=== PATIENT | female | born 1965 | race Caucasian/White ===

== ENCOUNTER 2019-01-16 05:34 | Day surgery (SDC) | payer MEDICARE, MEDICAID ==
[2019-01-11 10:33] LABS: BASOPHILS # (AUTO) 0.1 X10'3 (0-0.2); BASOPHILS % (AUTO) 0.7 % (0-1); EOSINOPHILS # (AUTO) 0.1 X10'3 (0-0.9); EOSINOPHILS % (AUTO) 0.8 % (0-6); LYMPHOCYTES # (AUTO) 2.5 X10'3 (1.1-4.8); LYMPHOCYTES % (AUTO) 21.9 % (21-51); MEAN CORPUSCULAR HEMOGLOBIN 30.3 PG (27.0-31.0); MEAN CORPUSCULAR HGB CONC 34.4 g/dL (33.0-36.5); MEAN PLATELET VOLUME 8.8 FL (7.4-10.4); MONOCYTES # (AUTO) 0.8 X10'3 (0-0.9); MONOCYTES % (AUTO) 6.9 % (2-12); NEUTROPHILS # (AUTO) 7.9 X10'3 (1.8-7.7); NEUTROPHILS % (AUTO) 69.7 % (42-75); PRE OP HEMATOCRIT 42.8 % (35.0-45.0); PRE OP HEMOGLOBIN 14.7 g/dL (12.0-16.0); PRE OP PLATELET COUNT 226 X10'3 (140-440); RED BLOOD COUNT 4.86 X10'6 (4.20-5.60)
[2019-01-11 10:45] LABS: CLARITY,URINE CLEAR (Clear); COLOR,URINE YELLOW (Yellow); GLUCOSE, URINE NEGATIVE (Neg); KETONES,URINE NEGATIVE (Neg); LEUKOCYTE ESTERASE ,URINE NEGATIVE (Neg); NITRITES, URINE NEGATIVE (Neg); OCCULT BLOOD,URINE NEGATIVE (Neg); PROTEIN,URINE NEGATIVE (Neg); UROBILINOGEN,URINE 0.2 E.U/dL (0.2-1.0)
[2019-01-11 10:46] LABS: UA COLLECTION TYPE CLN CATCH MIDSTREAM
[2019-01-11 10:56] LABS: ALBUMIN 3.3 G/DL (3.4-5.0); ALBUMIN/GLOBULIN RATIO 0.9 (1.1-1.5); ALKALINE PHOSPHATASE 84 IU/L (46-116); BLOOD UREA NITROGEN 20 MG/DL (7-18); BUN/CREATININE RATIO 22.5 (6.6-38.0); CALCIUM 9.1 MG/DL (8.5-10.1); CHLORIDE 105 MMOL/L (99-107); CREATININE 0.89 MG/DL (0.40-0.90); PRE OP ALT 23 U/L (30-65); PRE OP ANION GAP 10 (8-16); PRE OP AST 11 U/L (10-37); PRE OP BILIRUB, TOTAL 0.3 MG/DL (0.0-1.0); PRE OP GLUCOSE 135 MG/DL (70-104); PRE OP POTASSIUM 4.2 MMOL/L (3.4-5.1); PRE OP SODIUM 141 MMOL/L (135-145); TOTAL PROTEIN 6.9 G/DL (6.4-8.2); eGFR 66 ML/MIN
[~2019-01-16] VITALS: Ht 160 cm; Wt 130.2 kg
[2019-01-16] VITALS (17 sets, daily range): BP systolic 116–154; BP diastolic 46–98
[~2019-01-16 05:34] MED LIST: ALBU2.5V12 NEB; CLON-528 PO; LISI-644 PO; MONT10TA21 PO; POTA20TA19 PO; SPIIN INH
[2019-01-16] MEDS ORDERED: ATOR40TA PO (05:58)
[2019-01-16] MEDS ORDERED: ALBU8.5H8 INH (05:58)
[2019-01-16] MEDS ORDERED: ACET-75 PO (05:58)
[2019-01-16] MEDS ORDERED: GABA-532 PO (05:58)
[2019-01-16] MEDS ORDERED: CHOL10002 PO (05:58)
[2019-01-16] MEDS ORDERED: IBUP-1984 PO (05:58)
[2019-01-16] MEDS ORDERED: METR-159 PO (05:58)
[2019-01-16] MEDS ORDERED: HYDR25TA4 PO (05:58)
[2019-01-16] MEDS ORDERED: ringers solution, lacted 1,000 ML IV SCH ×2 (06:44→10:59)
[2019-01-16] MEDS ORDERED: cefazolin/dext.iso 2gm/50ml 50 ML IV ONE (06:45)
[2019-01-16] MEDS ORDERED: famotidine 20mg tablet PO ONE (06:45)
[2019-01-16] MEDS: [UNRECOGNIZED DRUG - REMARK] IV NR ×2 (06:45→10:00)
[2019-01-16] MEDS: [UNRECOGNIZED DRUG - REMARK] PO NR ×2 (06:45→19:20)
[2019-01-16] MEDS ORDERED: ceFAZolin 1GM/D5W- ADD-VANTAGE 50 ML IV ONE (06:45)
[2019-01-16] MEDS ORDERED: albuterol 2.5 MG/3 ML nebule NEB ONE (06:45)
[2019-01-16] MEDS ORDERED: BUPIVAcaine/PF 2.5 mg/ml (0.25%) 30ml vial ONE (06:55)
[2019-01-16] MEDS: ceFAZolin 1000mg inj ONE ×2 (07:39→07:40)
[2019-01-16] MEDS ORDERED: midazolam 2 mg/2 ml injection ONE (09:31)
[2019-01-16] MEDS ORDERED: fentaNYL /PF 50mcg/ml 5ml ampule ONE (09:31)
[2019-01-16] MEDS ORDERED: propofol inj 20 ML IV ONE (09:33)
[2019-01-16] MEDS ORDERED: rocuronium 10mg/ml inj IV ONE (09:33)
[2019-01-16] MEDS ORDERED: LIDOcaine 2% (20mg/ml) 5ml vial ONE (09:33)
[2019-01-16] MEDS ORDERED: flumazenil 0.1 mg/ml inj. IV ONE (10:05)
[2019-01-16] MEDS ORDERED: naloxone 0.4 mg/ml inj ONE (10:05)
[2019-01-16] MEDS ORDERED: sevoflurane 250ml liquid IH ONE (10:05)
[2019-01-16] MEDS ORDERED: albuterol 60 PUFF/8GM Inhaler IH ONE (10:05)
[2019-01-16] MEDS ORDERED: meperidine/PF 25mg/ml syringe IV PRN ×3 (11:00)
[2019-01-16] MEDS ORDERED: morphine 4 MG/ML inj SYRINge IV PRN ×2 (11:00)
[2019-01-16] MEDS ORDERED: ondansetron/PF 4mg/2ml inj IV PRN ×2 (11:00→11:05)
[2019-01-16] MEDS ORDERED: proCHLORperazine 10 MG/2 ml inj IV PRN (11:00)
[2019-01-16] MEDS ORDERED: dexamethasone sod phosphate 4mg/ml inj. ONE (11:08)
[2019-01-16] MEDS ORDERED: neostigmine methylsulfate 1 MG/ML 10ml vial ONE (11:08)
[2019-01-16] MEDS ORDERED: glycopyrrolate 0.2mg/ml inj ONE (11:08)
[2019-01-16] MEDS ORDERED: ondansetron/PF 4mg/2ml inj ONE (11:08)
--- NOTE | 2019-01-16 11:37 | NUR ---
Received from OR via SURGICAL BED , accompanied by Anesthesiologist KARENA and report given by Anesthesiolgist. PATIENT WITH 20G PIVI N RIGHT UE RUNNING LR AT 100. DENIES PAIN. 2 ABDOMINAL LAP SITE BANDAIDS PRESENT AND CLEAN AND DRY. PATIENT WITH SCDS ON AND 10L MASK ON WITH 99% SATURATIONS. Addendum: 01/16/19 at 1153 by Lukas Dubon RN, RN Amended: Links added.
[2019-01-16] MEDS ORDERED: ipratropium/albuterol 3ml nebule IH ONE (11:40)
[2019-01-16] MEDS ORDERED: albuterol 2.5 MG/3 ML nebule NEB SCH (12:25)
[2019-01-16] MEDS ORDERED: non-formulary drug (Albuterol Sulfate 1 VIAL) NEB PRN (12:25)
[2019-01-16] MEDS ORDERED: clonazePAM 0.5mg tablet PO PRN (12:25)
--- NOTE | 2019-01-16 12:27 | NUR ---
Report called to receiving nurse. Transferred via [] Belongings []. Special Issues communicated to receiving nurse. ALL CRITERIA FOR TRANSFER TO THE FLOOR HAS BEEN ACHIEVED. VSS. BED LOW, CALL LIGHT AND VS. SET IN PLACE. RN PRESENT TO ACCEPT CARE. PATIENT RESTING COMFORTABLY IN BED. BELONGINGS SENT WITH PATIENT. DRESSINGS CDI. ON 4LPM NASAL CANNULA. TAKEN UP TO SURGICAL FLOOR WITH [address]. DENIES PAIN. DRESSINGS CDI. Addendum: 01/16/19 at 1236 by Lukas Dubon RN RN Amended: Links added.
--- NOTE | 2019-01-16 12:45 | NUR ---
Report received from LEXI Gaytan in recovery. Received patient to bed 340A, with all belongings on 4 L O2. Vital signs are stable. patient has no needs presently will continue to monitor.
[2019-01-16] MEDS: ibuprofen tablet 400 MG TABLET PO SCH ×2 (14:54→19:22)
[2019-01-16] MEDS ORDERED: albuterol 2.5 MG/3 ML nebule NEB PRN (15:05)
[2019-01-16] MEDS: gabapentin 300mg capsule PO SCH ×2 (16:02→23:34)
--- NOTE | 2019-01-16 18:15 | NUR ---
Patient in room [facility] 340. I have received report from LEXI Pink and had the opportunity to ask questions and assume patient care.
--- NOTE | 2019-01-16 18:24 | NUR ---
Problems reprioritized. Patient report given, questions answered & plan of care reviewed with LEXI Montelongo.
[2019-01-16] MEDS ORDERED: acetaminophen 325mg tablet PO PRN (19:20)
[2019-01-16] MEDS ORDERED: diphenhydrAMINE 25mg capsule PO PRN (19:20)
[2019-01-16] MEDS: potassium Cl 20 mEq SR tablet PO SCH (19:21)
[2019-01-16] MEDS: metroNIDAZOLE 500mg tablet PO SCH (19:21)
[2019-01-16] MEDS ORDERED: montelukast 10mg tablet PO SCH (21:00)
[2019-01-16] MEDS ORDERED: acetaminophen 325mg tablet PO SCH (21:00)
[2019-01-16] MEDS ORDERED: glucagon, human recombinant 1mg kit SUBCUT PRN (21:20)
[2019-01-16] MEDS ORDERED: dextrose ORAL solution 15 GM/59 ML bottle PO PRN ×2 (21:20)
[2019-01-16] MEDS ORDERED: MESSAGE TO PHARMACY PO ONE (21:20)
[2019-01-16] MEDS ORDERED: insulin Lispro (HumaLOG) vial - multi-dose SQ SCH (21:20)
[2019-01-16] MEDS ORDERED: dextrose 50%-water 50ml dispensing syringe IV PRN ×2 (21:20)
[2019-01-17] VITALS: BP 127/78
[2019-01-17] MEDS: ibuprofen tablet 400 MG TABLET PO SCH ×2 (02:00→08:00)
--- NOTE | 2019-01-17 06:31 | NUR ---
Problems reprioritized. Patient report given, questions answered & plan of care reviewed with LEXI Knowles.
--- NOTE | 2019-01-17 06:42 | NUR ---
Patient in room [facility] 340. I have received report from LEXI Montelongo and had the opportunity to ask questions and assume patient care.
[2019-01-17 07:24] VITALS: BP 127/74
[2019-01-17] MEDS ORDERED: ipratropium 0.5 MG/2.5ML nebule NEB SCH (08:00)
[2019-01-17] MEDS ORDERED: atorvastatin 20mg tablet PO SCH (08:00)
[2019-01-17] MEDS ORDERED: lisinopril 20mg tablet PO SCH (08:00)
[2019-01-17] MEDS ORDERED: vitamin D (cholecalciferol) 1,000 unit tablet PO SCH (08:00)
[2019-01-17] MEDS ORDERED: HYDROchlorothiazide 25mg tablet PO SCH (08:00)
[2019-01-17] MEDS: gabapentin 300mg capsule PO SCH (08:16)
[2019-01-17] MEDS: metroNIDAZOLE 500mg tablet PO SCH (08:17)
[2019-01-17] MEDS: potassium Cl 20 mEq SR tablet PO SCH (08:17)
[2019-01-17] MEDS ORDERED: montelukast 10mg tablet PO SCH (08:22)
--- NOTE | 2019-01-17 08:27 | NUR ---
Pt refused humalog insulin after breakfast. Pt states that she does not take insulin at home and does not want to take it here. Education provided regarding risks of not taking insulin, pt stated understanding and continued to refuse. Will continue to monitor.
--- NOTE | 2019-01-17 10:21 | NUR ---
Nutrition consult: Patient with hx T2DM with A1c 6.3, DM education not warranted at this time. Patient s/p lap hernia repair with mesh to abdominal wall, diet just advanced to CHO controlled, pending PO intake. Will continue to follow. Addendum: 01/17/19 at [address] Amended: Links added.
[2019-01-17 11:00] VITALS: BP 127/78
[2019-01-17] MEDS ORDERED: lactobacillus rhamnosus 10,000 MMU CELLS/CAPSULE PO SCH (20:00)
[2019-01-17] MEDS ORDERED: insulin glargine (Lantus) pen - multi-dose SQ SCH (21:00)
== END 2019-01-17 14:19 | disposition home or self-care (01) ==
LOC: PAS 05:34 → SUR 3N 11:07 → PAS 01-17 14:19
PROVIDERS: ATTEND Surgery
DX: K43.6 Other and unspecified ventral hernia with obstruction, without gangrene (principal); E11.9 Type 2 diabetes mellitus without complications; E78.5 Hyperlipidemia, unspecified; F41.9 Anxiety disorder, unspecified; G89.29 Other chronic pain; I10 Essential (primary) hypertension; J44.9 Chronic obstructive pulmonary disease, unspecified; F32.9 Major depressive disorder, single episode, unspecified; M19.90 Unspecified osteoarthritis, unspecified site; M85.80 Other specified disorders of bone density and structure, unspecified site; G43.909 Migraine, unspecified, not intractable, without status migrainosus; G47.33 Obstructive sleep apnea (adult) (pediatric); E66.01 Morbid (severe) obesity due to excess calories; Z68.43 Body mass index [BMI] 50.0-59.9, adult; Z91.09 Other allergy status, other than to drugs and biological substances; F17.210 Nicotine dependence, cigarettes, uncomplicated; Z72.89 Other problems related to lifestyle; Z98.890 Other specified postprocedural states; Z79.899 Other long term (current) drug therapy
CPT/HCPCS: 36415; 49653; 71046; 80053; 81003; 82948; 83036; 85025; 87081; 93005; 94640; 94760; C1713; C1758; C1781; J0690; J1100; J1815; J2001; J2250; J2310; J2405; J2704; J2710; J3010; J3490; J7120; Q0163; A4215; A4618; A7000; G0378

== ENCOUNTER 2019-09-13 05:29 | Day surgery (SDC) | payer MEDICARE, MEDICAID ==
[2019-09-06 12:22] LABS: BASOPHILS # (AUTO) 0.1 X10'3 (0-0.2); EOSINOPHILS # (AUTO) 0.2 X10'3 (0-0.9); MONOCYTES # (AUTO) 0.6 X10'3 (0-0.9)
[2019-09-06 12:24] LABS: EOSINOPHILS % (AUTO) 2.5 % (0-6); LYMPHOCYTES # (AUTO) 2.4 X10'3 (1.1-4.8); LYMPHOCYTES % (AUTO) 28.8 % (21-51); MEAN CORPUSCULAR HEMOGLOBIN 29.4 PG (27.0-31.0); MEAN CORPUSCULAR VOLUME 89.1 FL (78-98); MEAN PLATELET VOLUME 8.9 FL (7.4-10.4); NEUTROPHILS % (AUTO) 60.7 % (42-75); PRE OP HEMATOCRIT 45.4 % (35.0-45.0); PRE OP PLATELET COUNT 225 X10'3 (140-440); RED CELL DISTRIBUTION WIDTH 13.2 % (11.5-14.5)
[2019-09-06 12:46] LABS: ALBUMIN 3.3 G/DL (3.4-5.0); ALBUMIN/GLOBULIN RATIO 0.9 (1.1-1.5); ALKALINE PHOSPHATASE 99 IU/L (46-116); BLOOD UREA NITROGEN 15 MG/DL (7-18); BUN/CREATININE RATIO 12.7 (6.6-38.0); CALCIUM 8.9 MG/DL (8.5-10.1); CHLORIDE 103 MMOL/L (99-107); CREATININE 1.18 MG/DL (0.40-0.90); PRE OP ALT 20 U/L (30-65); PRE OP ANION GAP 9 (8-16); PRE OP AST 15 U/L (10-37); PRE OP BILIRUB, TOTAL 0.3 MG/DL (0.0-1.0); PRE OP GLUCOSE 109 MG/DL (70-104); PRE OP POTASSIUM 4.5 MMOL/L (3.4-5.1); PRE OP SODIUM 141 MMOL/L (135-145); TOTAL CARBON DIOXIDE 29.5 MMOL/L (24-32); eGFR 47 ML/MIN
[~2019-09-13] VITALS: Ht 160 cm; Wt 133.0 kg
[~2019-09-13 05:29] MED LIST changes: +ALBU8.5H8 INH; +ATOR40TA PO; +CHOL10002 PO; +HYDR25TA4 PO; +IBUP-1984 PO; +ringers solution, lacted 1,000 ML IV SCH
[2019-09-13 05:30] VITALS: BP 165/104
[2019-09-13] MEDS ORDERED: ceFAZolin/D5W- 1GM premix 50 ML IV ONE (05:30)
[2019-09-13] MEDS ORDERED: famotidine 20mg tablet PO ONE (05:30)
[2019-09-13] MEDS ORDERED: cefazolin/dext.iso 2gm/50ml 50 ML IV ONE (05:30)
[2019-09-13] MEDS ORDERED: albuterol 2.5 MG/3 ML nebule NEB ONE (05:30)
[2019-09-13] MEDS ORDERED: LIDOcaine 1% (10mg/ml) 2ml vial ONE (05:50)
[2019-09-13] MEDS ORDERED: BUPIVAcaine/PF 2.5mg/ml (0.25%) 10ml vial ONE (07:01)
[2019-09-13] MEDS ORDERED: morphine 2 MG/ML inj. syringe IV PRN (07:10)
[2019-09-13] MEDS ORDERED: morphine 4 MG/ML inj SYRINge IV PRN (07:10)
[2019-09-13] MEDS ORDERED: ondansetron/PF 4mg/2ml inj IV PRN (07:10)
[2019-09-13] MEDS ORDERED: fentaNYL/PF 50MCG/1 ML 2ML syringe IV PRN ×2 (07:10)
[2019-09-13] MEDS ORDERED: ringers solution, lacted 1,000 ML IV SCH (07:10)
[2019-09-13] MEDS ORDERED: hydrALAZINE 20mg/ml inj. IV PRN (07:10)
[2019-09-13] MEDS ORDERED: labetalol 20mg/4ml (5mg/ml) syringe IV PRN (07:10)
[2019-09-13] MEDS ORDERED: LIDOcaine 0.5% (5mg/ml) 50ml vial ONE (07:17)
[2019-09-13] MEDS ORDERED: fentaNYL/PF 50MCG/1 ML 2ML syringe ONE (07:20)
[2019-09-13] MEDS ORDERED: MIDAZolam 1mg/ml 10ml vial ONE (07:20)
[2019-09-13 08:00] VITALS: BP 133/87
--- NOTE | 2019-09-13 08:00 | NUR ---
Received from OR via BED, accompanied by Anesthesiologist DR GOODEN and report given by Anesthesiolgist. PATIENT A&OX4, DENIES PAIN, V/S WNL, NEUROVASCULAR CHECKS INTACT, 20G PIV LUE, SCD ON, DRESSING TO RIGHT WRIST CDI ELEVATED WITH ICEBAG APPLIED.
[2019-09-13 08:10] VITALS: BP 132/88
[2019-09-13 08:20] VITALS: BP 131/81
[2019-09-13 08:30] VITALS: BP 124/77
[2019-09-13 08:40] VITALS: BP 129/80
--- NOTE | 2019-09-13 08:40 | NUR ---
PATIENT A&OX4, DENIES PAIN, V/S WNL, NEUROVASCULAR CHECKS INTACT, 20G PIV LUE D/C, SCD OFF, DRESSING TO RIGHT WRIST CDI ELEVATED WITH ICEBAG APPLIED. I HAVE REVIEWED D/C INSTRUCTIONS WITH PATIENT AND FAMILY AND THEY HAVE VERBALIZED UNDERSTANDING. PATIENT D/C HOME WITH ALL BELONGINGS AND FAMILY GAVE TRANSPORT HOME.
[2019-09-13] MEDS ORDERED: BUPIVAcaine/PF 2.5mg/ml (0.25%) 10ml vial IJ ONE (09:42)
== END 2019-09-13 08:40 | disposition home or self-care (01) ==
LOC: PAS 05:29
PROVIDERS: ATTEND Orthopaedic Surgery Hand Surgery
DX: G56.01 Carpal tunnel syndrome, right upper limb (principal); M65.341 Trigger finger, right ring finger; M16.11 Unilateral primary osteoarthritis, right hip; J44.9 Chronic obstructive pulmonary disease, unspecified; I10 Essential (primary) hypertension; G89.29 Other chronic pain; Z90.49 Acquired absence of other specified parts of digestive tract; Z98.51 Tubal ligation status; Z98.890 Other specified postprocedural states; Z88.9 Allergy status to unspecified drugs, medicaments and biological substances; Z11.59 Encounter for screening for other viral diseases
CPT/HCPCS: 26055; 29848; 36415; 71046; 80053; 82948; 85025; 93005; J0690; J2001; J2250; J3010; J3490; U0003; A4215; J7120

== ENCOUNTER 2025-01-05 18:49 | Emergency (ER) | payer MEDICARE, MEDICAID ==
[~2025-01-05 18:49] MED LIST changes: -ALBU2.5V12 NEB; -ALBU8.5H8 INH; +ASPI-611 PO; +BACL10TA PO; -CHOL10002 PO; -CLON-528 PO; +DULO30CA52 PO; +EMPA10TA PO; -HYDR25TA4 PO; -IBUP-1984 PO; -LISI-644 PO; +LOSA100T58 PO; +MELO-102 PO; +METO-395 PO; +MONT-48 PO; -MONT10TA21 PO; -POTA20TA19 PO; -SPIIN INH; +SPIR25TA5 PO; +TICA90TA PO; +UMEC62.5 IH; -ringers solution, lacted 1,000 ML IV SCH
[2025-01-05] MEDS ORDERED: CLOT15CR73 TOP (21:01)
[2025-01-05] MEDS ORDERED: DOXY100C43 PO (21:01)
--- NOTE | 2025-01-05 21:02 | Physician Documentation ---
History of Present Illness ~ Chief Complaint: Wound Stated Complaint: LEG PAIN Time Seen by MD: 19:42 Primary Medical Doctor: [facility] HPI Extending presents to the emergency department with scattered lesions to her lower extremities and upper extremities and lower pannus without petechiae, itching or pustules. Reports symptoms have been present for some time. She is uncertain she is exposed to bedbugs. She has secondary rash behind both knees that is dry and scaly. And same similar rash under her pannus. She denies respiratory symptoms, history of diabetes or similar symptoms in the past. Denies others having same symptoms. There has been no fever, nausea vomiting diarrhea, recent travels or hospitalizations or known ill contacts. There has been no chest pain, shortness of breath or tibial edema. Tetanus within 5 years?: No Medication Reconciliation Allergies: Coded Allergies: adhesive (Verified Allergy, Mild, RASH/BLISTERS, 01/15/19) Uncoded Allergies: ETOH (Adverse Reaction, Severe, hives, redness, 07/22/13) Scheduled Aspirin (Aspir 81), 1 TAB PO DAILY, (Reported) Atorvastatin Calcium* (Lipitor*), 1 TAB PO HS, (Reported) Clotrimazole/Betamet Diprop Cream* (Lotrisone Cream*), 1 APPLIC TOP Q12H Doxycycline Monohydrate (Doxycycline Monohydrate), 100 MG PO BID Duloxetine HCl (Duloxetine HCl), 1 CAP PO HS, (Reported) Empagliflozin (Jardiance), 1 TAB PO DAILY, (Reported) Losartan Potassium (Losartan Potassium), 1 TAB PO DAILY, (Reported) Meloxicam (Meloxicam), 1 TAB PO DAILY, (Reported) Metoprolol Succinate (Metoprolol Succinate), 25 MG PO DAILY Montelukast Sodium (Singulair), 1 TAB PO QPM, (Reported) Spironolactone (Spironolactone), 1 TAB PO DAILY, (Reported) Ticagrelor (Brilinta), 90 MG PO BID Umeclidinium [place] (Incruse Ellipta), 1 PUFF IH DAILY, (Reported) Scheduled PRN Baclofen (Baclofen), 1 TAB PO DAILY PRN for muscle spasms, (Reported) Past Medical History Past Medical History: High Cholesterol, Hypertension, COPD, Hernia, Diabetes, Chronic Pain, Chronic Back Pain Past Surgical History: no surgical history Patient History: FH: coronary artery disease FATHER MOTHER brother Alcohol Use: None Drug Use: none Lives In: Home Occupation: unemployed Review of Systems All Other Systems at this time: Reviewed and Negative Constitutional: Reports: see HPI; Denies: fever, weakness Respiratory: Reports: no symptoms reported Cardiovascular: Reports: no symptoms reported Neurological: Reports: no symptoms reported Integumentary: Reports: rash, itching, lesions Endocrine: Reports: no symptoms reported Psychiatric: Reports: no symptoms reported Physical Exam Vital Signs: Temperature: 97.9, Source: Temporal, Heart Rate: 66, Respiratory Rate: 16, BP: 131/69, Pulse Oximetry: 95 Oxygen Flow Rate: 0 Cardiovascular: normal peripheral pulses, regular rate, rhythm Respiratory: normal breath sounds Extremities: no calf tenderness, inflammation Extremities Mild inflammation with erythema to both proximal calves her, no dependent tibial edema. Skin: rash Skin Non linear scattered lesions to the lower extremities upper extremities and lower pannus. No scalp or facial involvement. No petechiae note, no bullae and/or pustules. Dried scaly skin behind both knees and popliteal region along with pannus. Neurologic: oriented x4 Lymphatics: normal inspection Psychiatric: normal mood/affect Progress Results/Orders Results/Orders Completed Orders - MIGUEL GUSTAFSON Doxycycline 100mg Capsule (Vibramycin 10 (01/05/25 20:54) Permethrin Topical Cream (Elimite Cream (01/05/25 20:55) Clotrimazole Topical Cream (Lotrimin Cre (01/05/25 20:55) Vital Signs 01/05/25 01/05/25 19:14 21:51 Temp 97.9 98.6 Pulse 66 62 Resp 16 18 B/P (MAP) 131/69 130/68 Pulse Ox 95 99 O2 Flow Rate 0 Medical Decision Making Differential Dx:Considerations: Include: Cellulitis, Healing wound Additional Comment 59-year-old female who is immunocompetent with examination & history that is consistent with lesions likely that of parasitic secondary infection causing cellulitis her. Can not exclude other differentials such as autoimmune, infectious and drug etiologies. We will provide one time dose of permethrin cream, hydroxyzine for itching, antibiotic for suspected secondary infections and clotrimazole for secondary fungal infection behind knees and pannus. Patient is discharged with follow up and aftercare instructions. Rx was sent to her pharmacy. All questions and concerns addressed. Discharged in safe stable condition. Departure Disposition: HOME / SELF CARE / HOMELESS Impression: Primary Impression: Skin infection Additional Impression: Skin yeast infection Condition: Stable Additional Instructions: Please apply skin shampoo leave on place for 8-10 hours before rinsing off. Please continue with oral antibiotic and apply topical antifungal behind her knees. Make follow up appointment with your primary care physician and return to the emergency department with worse. Thank you for visiting the emergency department of [facility]. Referrals: NO PRIMARY CARE PROVIDER (PCP) Prescriptions Doxycycline Monohydrate (Doxycycline Monohydrate) 100 Mg Capsule 100 MG PO BID for 10 Days, #20 CAP may sub doxycycline hyclate or azithromycin z-pack as prescribed Prov: MIGUEL GUSTAFSON 01/05/25 Clotrimazole/Betamet Diprop Cream* (Lotrisone Cream*) 15 Gm Tube 1 APPLIC TOP Q12H for 7 Days, #30 GM apply to affected area(s) Prov: MIGUEL GUSTAFSON 01/05/25 Education Educated: Patient Educated regarding: diagnosis, treatment Signature Scribe Signature: . Attestation: . MIGUEL GUSTAFSON Jan 05, 2025 21:02
[2025-01-05] MEDS: DOXYCYCLINE 100MG CAPSULE PO STA (21:16)
[2025-01-05] MEDS: Permethrin Cream 60gm TP ONE (21:17)
[2025-01-05] MEDS: clotrimazole topical cream 15gm tube TP SCH (21:49)
[2025-01-05 21:51] VITALS: BP 130/68; PULSE 62; RESP 18; TEMP 98.6; O2SAT 99
== END 2025-01-05 21:52 | disposition home or self-care (01) ==
LOC: ER 18:49
DX: B37.2 Candidiasis of skin and nail (principal); E11.9 Type 2 diabetes mellitus without complications; E78.00 Pure hypercholesterolemia, unspecified; G89.29 Other chronic pain; I10 Essential (primary) hypertension; J44.9 Chronic obstructive pulmonary disease, unspecified; Z91.048 Other nonmedicinal substance allergy status; Z79.899 Other long term (current) drug therapy; Z79.82 Long term (current) use of aspirin; Z79.84 Long term (current) use of oral hypoglycemic drugs; Z56.0 Unemployment, unspecified
CPT/HCPCS: 99284

== ENCOUNTER 2025-02-04 01:26 | Inpatient (IN) | payer MEDICAID, MEDICARE ==
[~2025-02-04] VITALS: Ht 157.5 cm; Wt 125.5 kg
[2025-02-04] VITALS (11 sets, daily range): BP systolic 136–148; BP diastolic 61–63; PULSE 6–74; RESP 14–18; TEMP 97.4–98.4; O2SAT 57–98
[~2025-02-04 01:26] MED LIST changes: +ACET-1008 PO; +ALB0.5UD NEB; +ASPI-1071 PO; -ASPI-611 PO; +ATOR-2 PO; -ATOR40TA PO; -BACL10TA PO; +BLOO1KIT81 TOP; +DOXY-460 PO; +DULO20CA18 PO; -DULO30CA52 PO; -MELO-102 PO; -METO-395 PO; +METO50TA7 PO; +PANT-47 PO; +PRED10TA23 PO; +RIVA2.5T PO; -TICA90TA PO
--- NOTE | 2025-02-04 02:07 | RADIOLOGY REPORT ---
CHEST RADIOGRAPH Indication: CP Technique: Single frontal view of the chest was obtained COMPARISON: DI CHEST,SINGLE VIEW on DOS: 01/13/25, CHEST,SINGLE VIEW on DOS: 08/30/22 FINDINGS: Lines and Tubes: None Lungs: Mild diffuse increased prominence of the pulmonary vasculature. No evidence of focal consolidation. Pleura: No effusion. No pneumothorax. Cardiomediastinal contours: Cardiomegaly. Bones: Unremarkable IMPRESSION: 1. Cardiomegaly with mild pulmonary vascular congestion.
[2025-02-04 03:32] LABS: MEAN PLATELET VOLUME 9.7 FL (7.4-10.4); RED CELL DISTRIBUTION WIDTH 15.1 % (11.5-14.5)
[2025-02-04 03:55] LABS: CREATININE 0.86 MG/DL (0.40-0.90); PRO BRAIN NATRIURETIC PEPTIDE 3120 PG/ML (0-125); TOTAL CARBON DIOXIDE 34.3 MMOL/L (24-32); eCRCL 54 ML/MIN; eGFR 67 ML/MIN
[2025-02-04] MEDS: furosemide 10 MG/1 ML 10ml inj IV ONE (04:04)
[2025-02-04] MEDS: ipratropium/albuterol 3ml nebule NEB PRN (04:07)
--- NOTE | 2025-02-04 04:53 | Physician Documentation ---
History of Present Illness ~ Chief Complaint: Shortness of Breath Stated Complaint: SOB Time Seen by MD: 01:50 Primary Medical Doctor: [facility] Mode of Arrival: POV HPI 59 year old female history of afib on xarelto, prediabetes, reports BLE swelling that also includes her lower abdomen, as well as shortness of breath when laying flat. She has a history of sepsis from bilateral lower extremity cellulitis. She lives in her van. She denies fevers, chest pain, cough, N/V/D. Medication Reconciliation Allergies: Coded Allergies: adhesive (Verified Allergy, Mild, RASH/BLISTERS, 02/04/25) Uncoded Allergies: ETOH (Adverse Reaction, Severe, hives, redness, 07/22/13) Scheduled Albuterol Sulfate Nebs* (Proventil Nebs*), 1 VIAL NEB Q6H, (Reported) Aspirin (Ecotrin*), 1 TAB PO DAILY Atorvastatin Calcium (Atorvastatin Calcium), 1 TAB PO DAILY, (Reported) Doxycycline Monohydrate (Doxycycline Monohydrate), 1 CAP PO Q12H, (Reported) Duloxetine HCl (Duloxetine HCl), 1 CAP PO DAILY, (Reported) Empagliflozin (Jardiance), 1 TAB PO DAILY, (Reported) Losartan Potassium (Losartan Potassium), 1 TAB PO DAILY, (Reported) Metoprolol Succinate* (Toprol Xl*), 1 TAB PO DAILY, (Reported) Montelukast Sodium (Singulair), 1 TAB PO QPM, (Reported) Pantoprazole Sodium (PROTONIX tablet), 40 MG PO DAILY Prednisone (Prednisone), 0 PO DAILY Rivaroxaban (Xarelto), 2.5 PO BID, (Reported) Spironolactone (Spironolactone), 1 TAB PO DAILY, (Reported) Umeclidinium [place] (Incruse Ellipta), 1 PUFF IH DAILY, (Reported) Scheduled PRN Acetaminophen (Tylenol), 1 TAB PO PRN PRN for pain or fever, (Reported) Durable Medical Equipment Blood Pressure Test Kit (Blood Pressure Kit), EA TOP UD, (DME) Past Medical History Past Medical History: High Cholesterol, Hypertension, COPD, Hernia, Diabetes, Chronic Pain, Chronic Back Pain Past Surgical History: no surgical history Patient History: FH: atrial fibrillation FH: coronary artery disease FATHER MOTHER brother Alcohol Use: None Drug Use: none Lives In: Home Occupation: unemployed Review of Systems All Other Systems at this time: Reviewed and Negative Physical Exam Vital Signs: RN Vital Signs have been reviewed: Yes, Temperature: 98.1, Source: Oral, Heart Rate: 57, Respiratory Rate: 26, BP: 141/70, Pulse Oximetry: 91, Weight: 125.450 Oxygen Flow Rate: 0 Physical Exam HEENT: PERRL, moist oral mucosa, EOMI Pulmonary: No respiratory distress CTAB but distant throughout Cardiac: RRR, no murmur, rub or gallop GI: nondistended, soft, nontender, no guarding, no rebound; 2+ pitting edema to lower abdomen MSK: no deformity 2+ pitting edema to BLE Skin: w/d/i, no rash Neuro: alert, nonfocal Psych: normal affect Progress Results/Orders Results/Orders Orders - AZALEA SALOMON MD Chest,Single View (02/04/25 01:56) Monitor (02/04/25 01:27) Saline Lock (02/04/25 01:27) Oxygen (02/04/25 01:27) Electrocardiogram (02/04/25 01:27) Hs Troponin I W Calculations (02/04/25 03:27) Hs Troponin I W Calculations (02/04/25 04:27) Ipratropium/Albuterol Nebule (Ipratrop/A (02/04/25 04:00) Completed Orders - AZALEA SALOMON MD Chest,Single View (02/04/25 01:56) Cbc/Diff (02/04/25 02:51) BMP (02/04/25 02:51) PBNP (02/04/25 02:51) Hs Troponin I W Calculations (02/04/25 02:51) Furosemide Inj (Lasix Inj) (02/04/25 04:00) Medications Received in ER Medications (Trade) Dose Ordered Sig/Greg Route PRN Reason Start Time Stop Time Status Last Admin Dose Admin (ipratrop/ albuterol 0.5-3(2.5) MG/3ml nebule) 3 ml ONCE PRN NEB SOB or wheezing 02/04/25 04:00 02/04/25 04:07 3 ML (Lasix inj) 40 mg ONCE ONCE IV 02/04/25 04:00 02/04/25 04:01 DC 02/04/25 04:04 40 MG Vital Signs 02/04/25 02/04/25 02/04/25 02/04/25 01:36 02:00 03:45 04:11 Temp 98.1 98.1 Pulse 69 59 16 Resp 22 26 14 B/P (MAP) 139/65 142/72 (95) Pulse Ox 90 91 97 O2 Delivery Room Air* O2 Flow Rate 0 0 0 FiO2 21 02/04/25 02/04/25 04:23 04:41 Temp 98.1 Pulse 60 57 Resp 16 26 B/P (MAP) 141/70 (93) Pulse Ox 98 91 O2 Delivery Room Air* O2 Flow Rate 0 0 FiO2 21 Laboratory Tests Test 02/04/25 02:31 02/04/25 03:12 CBC Comment Chemistry Comments White Blood Count 6.7 Red Blood Count 4.06 L Hemoglobin 12.1 Hematocrit 37.1 Mean Corpuscular Volume 91.5 Mean Corpuscular Hemoglobin 29.7 Mean Corpuscular Hemoglobin Concent 32.5 L Red Cell Distribution Width 15.1 H Platelet Count 134 L Mean Platelet Volume 9.7 Neutrophils (%) (Auto) 70.2 Lymphocytes (%) (Auto) 15.9 L Monocytes (%) (Auto) 8.7 Eosinophils (%) (Auto) 4.3 Basophils (%) (Auto) 0.9 Neutrophils # (Auto) 4.7 Lymphocytes # (Auto) 1.1 Monocytes # (Auto) 0.6 Eosinophils # (Auto) 0.3 Basophils # (Auto) 0.1 Sodium Level 142 Potassium Level 3.7 Chloride Level 105 Carbon Dioxide Level 34.3 H Anion Gap 3 L Blood Urea Nitrogen 6 L Creatinine 0.86 Estimated GFR/1.73 m2 67 BUN/Creatinine Ratio 7.0 L Glucose Level 129 H Calcium Level 8.0 L Troponin I High Sensitivity 14 Pro-B-Type Natriuretic Peptide 3120 H Albumin 2.3 L Medical Decision Making Additional information obtaine: N/A Findings 59 year old female with increasing edema and shortness of breath. Provided breathing treatment, steroid, and diuretic. Workup was largely benign otherwise. Reviewed prior echocardiogram and visit history. Will bring patient in for diuretic therapy. Care transferred to hospitalist. Heart Score: 1000 Differential Dx:Considerations: Include: other Additional Infomation Ddx = CHF exacerbation, pulmonary edema, COPD exacerbation, cor pulmonale, PNA, ACS/MN Departure Disposition: ADMITTED INPATIENT Admitted to Inpatient Unit: to hospitalist Impression: Primary Impression: Peripheral edema Condition: Stable Discharge Instructions: Heart Failure, Diagnosis, [id number] Referrals: NO PRIMARY CARE PROVIDER (PCP) Education Educated: Patient Educated regarding: diagnosis, treatment, prognosis, need for follow up Signature Scribe Signature: . Attestation: . AZALEA SALOMON MD Feb 04, 2025 04:53
[2025-02-04] MEDS ORDERED: potassium Cl 20 mEq SR tablet PO PRN ×2 (05:50)
[2025-02-04] MEDS ORDERED: magnesium hydroxide 30ml (MOM) UD suspension PO PRN (05:50)
[2025-02-04] MEDS ORDERED: ondansetron/PF 4mg/2ml inj IV PRN (05:50)
[2025-02-04] MEDS ORDERED: mag hydrox/Alum hydrox/simeth 30ml oral suspension PO PRN (05:50)
[2025-02-04] MEDS ORDERED: magnesium sulf-water 4G/100mL 100 ML IV PRN (05:50)
[2025-02-04] MEDS ORDERED: magnesium Cl slow-release 64mg tablet PO PRN (05:50)
[2025-02-04] MEDS ORDERED: potassium Cl 40MEQ/1/2NS 520ml 520 ML IV PRN (05:50)
[2025-02-04] MEDS ORDERED: magnesium sulf-water 2g/50mL 50 ML IV PRN (05:50)
--- NOTE | 2025-02-04 06:02 | HISTORY AND PHYSICAL-Residence ---
History & Physical Providers to CC Resident Creating Document: RHONDA BURNS, RES CC: CONCHA CHATMAN MD ~ History of Present Illness Primary Medical Doctor: [facility] Reason for Admit\Complaint: History of heart failure, AFib, COPD exacerbation, cellulitis History of Present Illness 59-year-old female came to the ED with complaints of shortness of breath for the last two days, patient stated that she could not walk even few steps and was feeling short of breath. She is a readmit from one month ago, during her last admission patient was treated for her cellulitis. She also stated that she has noted increase in warmth and redness in left lower extremity and lower abdomen. Patient denied any chest pain, palpitations, fever. Patient lives by herself in her van Patient's primary care doctor is from [facility] Patient's commercial management accountant Dr. Multani, recently visited her commercial management accountant one week ago. Allergies: Coded Allergies: adhesive (Verified Allergy, Mild, RASH/BLISTERS, 02/04/25) Uncoded Allergies: ETOH (Adverse Reaction, Severe, hives, redness, 07/22/13) Home Medications Home Medications Active Blood Pressure Kit (Blood Pressure Test Kit) 1 Each Kit Ea TOP UD PROTONIX tablet (Pantoprazole Sodium) 40 Mg Tablet. 40 Mg PO DAILY 30 Days Prednisone 10 Mg Tablet 0 PO DAILY Take 4 tabs daily x4 days, then 3 daily x4 days 2 daily x4 days 1 daily x4 days 1/2 daily x4 days then STOP Ecotrin* (Aspirin) 81 Mg Tablet. 1 Tab PO DAILY 30 Days Reported Xarelto (Rivaroxaban) 2.5 Mg Tablet 2.5 PO BID Toprol Xl* (Metoprolol Succinate) 50 Mg Tab.sr.24h 1 Tab PO DAILY 30 Days Proventil Nebs* (Albuterol) 2.5 Mg/0.5 Ml Vial.neb 1 Vial NEB Q6H 30 Days Tylenol (Acetaminophen) 325 Mg Tablet 1 Tab PO PRN PRN 30 Days Duloxetine HCl 20 Mg Capsule.dr 1 Cap PO DAILY 30 Days 10mg Atorvastatin Calcium 80 Mg Tablet 1 Tab PO DAILY 30 Days Doxycycline Monohydrate 100 Mg Capsule 1 Cap PO Q12H 10 Days Losartan Potassium 100 Mg Tablet 1 Tab PO DAILY 30 Days Jardiance (Empagliflozin) 10 Mg Tablet 1 Tab PO DAILY 30 Days Spironolactone 25 Mg Tablet 1 Tab PO DAILY 30 Days Incruse Ellipta (Umeclidinium [place]) 62.5 Mcg Blst.w.dev 1 Puff IH DAILY Singulair (Montelukast Sodium) 10 Mg Tablet 1 Tab PO QPM Past Medical History Past Medical History Congestive heart failure COPD Borderline diabetes mellitus Bilateral lower leg cellulitis Atrial fibrillation Coronary artery disease status post PCI Obesity Hyperlipidemia Chronic back pain Past Surgical History Surgical History Comment Tubal ligation Cholecystectomy Coronary artery disease status post PCI two stents were placed two years ago Family History Family History: FH: atrial fibrillation FH: coronary artery disease FATHER MOTHER brother Past Social History Social History Comment She is an active smoker, she has been smoking 10 cigarettes per day for the past 45 years, continues to smoke last cigarette was yesterday She denied any alcohol/drug abuse Alcohol Use: None Drug Use: None Lives In: Home Occupation: unemployed ROS All Other Systems: Reviewed and Negative ROS Constitutional: No fever, no dizziness, no weakness, no decrease in appetite HEENT: Normal vision. No sore throat, epistaxis, tinnitus Cardiovascular: No chest pain/discomfort, no palpitations, no syncope,pedal edema bilateral lower extremities Respiratory: sob noted, no cough, no hemoptysis Gastrointestinal: No abdominal pain, nausea, vomiting. No diarrhea, melena. Genitourinary: No frquency, urgency, incontinence, nocturia. No dysuria, hematuria Musculoskeletal: Normal, no pains Endocrine: No fatigue, polydipsia, polyuria. No heat or cold intolerance Neurologic: No headache, vertigo. No weakness, numbness or tingling of extremities Psychiatric: No hallucinations/delusions, no anhedonia, no suicidal ideation Hematologic: Left extremity erythematous appearance Exam Vitals: Vital Signs Date Time Temp Pulse Resp B/P (MAP) Pulse Ox O2 Delivery O2 Flow Rate FiO2 02/04/25 04:41 98.1 57 26 141/70 (93) 91 0 02/04/25 04:23 Room Air* 21 General: Awake , alert, and oriented x4, resting comfortably in the bed, mild discomfort HEENT: Atraumatic, normocephalic, EOMI, anicteric sclera ; pink conjunctiva Neck: Trachea midline. Supple, full range of motion, no JVD Cardiac: S1-S2 heard regular rate Regular rhythm, with no murmurs all over the precordium. Respiratory: Decreased breath sounds bilaterally, vesicular breath sounds heard, no tachypnea, no wheezing ,rub or rales, Chest wall is symmetric and without deformity. Gastrointestinal: Morbid obesity, Abdomen symmetric, non-distended, soft, non- tender, normal bowel sounds x4 quadrant, normoactive, no hepatosplenomegaly,, appears mildly erythematous Musculoskeletal: Erythema in the left leg, thigh and buttocks, Nonpitting edema of left leg, no discharge noted, no cyanosis Neurological: Speech is clear, alert, and oriented x 4. No motor or sensory deficit, deep tendon reflexes normal, cerebellar intact. Cranial nerves II-XII intact. Skin: Interigo Lesly noted, left lower extremity warmth and erythema noted Diagnostic Data Last Recorded Lab Results: 02/04/2531102/04/25311 Counseling Services Smoking & Tobacco Cessation: 3-10 Minutes (Discussing smoking cessation with the patient including the risk continued smoking with the patient including: lung cancer, stroke, heart attack, poor wound healing, increase in facial drinking, risk of MRSA skin infections.) Advance Care Planning Advanced Care plannin - 30 Minutes (Discussed with the patient regarding her code status and advanced care directive patient decided she wanted to be a full code) Additional Plan Acute on chronic Heart failure with preserved ejection fraction 50-55%, decompensated Acute hypoxemic respiratory failure Chest x-ray reported cardiomegaly with mild pulmonary vascular congestion ProBNP elevated at 3000, patient has been experiencing shortness of breath, bilateral lower extremity swelling Patient's recent echo was done on 01/14/2025 Initiated the patient on furosemide 20 mg IV b.i.d. Continue patient's GDMT drugs once med rec is done Chronic obstructive pulmonary disease, not in exacerbation Active tobacco smoker Patient is currently saturating at 91%, requiring minimal oxygen of 1-2 L Chest x-ray reported cardiomegaly with mild pulmonary vascular congestion Plan Initiated the patient on breathing treatments albuterol q.2h p.r.n., DuoNebs q.4h scheduled Titrate oxygen as required maintain SpO2 90-94% Initiated the patient on antibiotic ceftriaxone Cellulitis left lower extremity Patient was recently treated for bilateral lower extremity cellulitis Vascular ultrasound on 01/14/2025 was normal Continue antibiotics ceftriaxone Paroxysmal AFib Patient was diagnosed with AFib with RVR in the previous admission, Currently EKG and telemetry reading did not show AFib Continue home medications Xarelto once med rec is done Continue telemetry monitoring History of CAD s/p PCI Hypertension Continue patient's home medication once med rec is done Diabetes mellitus type 2 Patient's HbA1c 6.5 Continue patient's home medications Jardiance once med rec is done Intertrigo Lelsy Initiated the patient on clotrimazole 1% cream b.i.d. Hyperlipidemia Patient is on atorvastatin, continue after med reconciliation Obstructive sleep apnea Patient will benefit from outpatient sleep study BiPAP/CPAP if required Morbid obesity BMI is 50.6 kg/meter squared Advised weight loss Tobacco use disorder Discussed smoking cessation with the patient including the risk continued smoking with the patient including: lung cancer, stroke, heart attack, poor wound healing, increase in facial drinking, risk of MRSA skin infections. Patient denied nicotine patch Code Status: Full code DVT Prophylaxis: Xarelto once med rec is done Lines/Tubes: PIV Nutrition: Heart healthy diet PT:yes Prognosis: Guarded Disposition: Med rec pending, continue to monitor the patient. Rhonda Burns MD Internal medicine resident,[id number] Date of Service: Feb 04, 2025 Billing Provider: CONCHA CHATMAN MD,RHONDA, RES Feb 04, 2025 06:02
[2025-02-04] MEDS ORDERED: piperacillin/tazo 3.375gm/50ml 50 ML IV SCH (06:05)
--- NOTE | 2025-02-04 06:49 | ELECTROCARDIOGRAPH REPORT ---
[facility] Test Date: 2025-02-04 Test Time: 01:31:59 Pat Name: HEMA OLVREA Department: EMERGENCY ROOM Room: ORTHO [facility] Gender: F [employer] Supervisor: KARELY : 1965 Requested By: AZALEA SALOMON Order Number: [id number] Reading MD: Dr. Vicente Saleem Measurements Intervals [place] Rate: 69 P: 6 MT: 157 QRS: -62 QRSD: 126 T: 30 QT: 432 QTc: 463 Interpretive Statements Sinus rhythm Left bundle branch block Baseline wander in lead(s) V2,V3 Electronically Signed On 02-07-2025 7:42:[address] Vicente Saleem Please click the below link to view image of tracing.
[2025-02-04] MEDS ORDERED: vancomycin/NS 1 GM ADD-VANTAGE 250 ML IV SCH (07:00)
[2025-02-04] MEDS: ipratropium/albuterol 3ml nebule NEB SCH (07:06)
[2025-02-04] MEDS: K and/or MAG REPLACEMENT MC SCH (08:00)
[2025-02-04] MEDS: docusate sod 100mg capsule PO SCH (08:00)
[2025-02-04] MEDS: lactobacillus rhamnosus 10,000 MMU CELLS/CAPSULE PO SCH (08:00)
[2025-02-04] MEDS: CefTRIAXone/D5W-Rocephin 1gm 50 ML IV SCH (08:10)
[2025-02-04 08:27] LABS: PHOSPHORUS 3.7 MG/DL (2.3-4.5)
[2025-02-04 08:39] LABS: LEUKOCYTE ESTERASE ,URINE NEGATIVE (Neg); NITRITES, URINE NEGATIVE (Neg); OCCULT BLOOD,URINE NEGATIVE (Neg)
[2025-02-04 08:40] LABS: UA COLLECTION TYPE VOIDED
[2025-02-04 08:46] LABS: URINE AMPHETAMINE SCREEN NEGATIVE (Neg); URINE BARBITUATE SCREEN NEGATIVE (Neg); URINE BENZODIAZEPINES SCREEN NEGATIVE (Neg); URINE CANNABINOID SCREEN NEGATIVE (Neg); URINE COCAINE SCREEN NEGATIVE (Neg); URINE METHADONE SCREEN NEGATIVE (Neg); URINE OPIATE SCREEN NEGATIVE (Neg); URINE PHENCYCLIDINE SCREEN NEGATIVE (Neg)
[2025-02-04] MEDS: clotrimazole topical cream 15gm tube TP SCH (08:55)
[2025-02-04] MEDS ORDERED: ALBUTEROL IH PRN (20:00)
[2025-02-04] MEDS ORDERED: [UNRECOGNIZED DRUG - OTHER] IH PRN (20:00)
[2025-02-04] MEDS: duloxetine 20mg capsule.DR PO SCH (22:24)
[2025-02-05] VITALS (14 sets, daily range): BP systolic 113–158; BP diastolic 61–79; PULSE 62–81; RESP 16–26; TEMP 97.4–98.1; O2SAT 91–93
[2025-02-05] MEDS: albuterol 2.5 MG/3 ML nebule NEB PRN (05:04)
[2025-02-05 05:40] LABS: MEAN PLATELET VOLUME 9.4 FL (7.4-10.4); RED CELL DISTRIBUTION WIDTH 15.1 % (11.5-14.5)
[2025-02-05 06:06] LABS: CREATININE 0.90 MG/DL (0.40-0.90); TOTAL CARBON DIOXIDE 35.4 MMOL/L (24-32); eCRCL 52 ML/MIN; eGFR 64 ML/MIN
[2025-02-05] MEDS: aspirin 81mg, enteric-coated 1 TAB TABLET.DR PO SCH (07:31)
[2025-02-05] MEDS: EMPAGLIFLOZIN 10 MG TABLET PO SCH (07:31)
[2025-02-05] MEDS: metoprolol succinate 25mg (24-HOUR) SR. Tablet PO SCH ×2 (07:32→20:55)
[2025-02-05] MEDS: ipratropium 0.5 MG/2.5ML nebule NEB SCH (08:35)
[2025-02-05] MEDS ORDERED: albuterol 2.5 MG/3 ML nebule NEB PRN (14:25)
--- NOTE | 2025-02-05 17:47 | PROGRESS NOTE ---
Daily Progress Note Providers to CC ~ feels better today, less lower leg edema redness pain Central Line/PICC still needed: No Zambrano-Non Protocol Zambrano Indications Met/Not Met: F/C Indications Not Met Antibiotic Timeout Antibiotic Ordered?: Yes MRSA Education MRSA Education Provided to pt: Yes Subjective As above Objective Vital Signs Date Time Temp Pulse Resp B/P (MAP) Pulse Ox O2 Delivery O2 Flow Rate FiO2 02/05/25 15:09 67 16 Room Air 0.0 02/05/25 15:08 91 21 02/05/25 10:42 98.1 158/61 (93) Vital signs, stable ,afebrile. Pulse Oximetry reflects adequate oxygenation. General: well developed, well nourished. Awake , alert, and oriented x4, resting comfortably in the bed, in no acute distress . Skin: Warm, dry, no pallor, no rash or petechiae. HEENT: Atraumatic, normocephalic, EOMI, anicteric sclera B; pink conjunctiva; PERRLA, normal oropharynx, moist oral and nasal mucosa. Tympanic membrane , nose , throat clear. Neck: Trachea midline. Supple, full range of motion, no JVD, bruit , hepatojugular reflex , lymphadenopathy or masses, or other lesions Cardiac: Regular rhythm, regular rate no murmurs, rubs, or gallops. Normal S1 and S2, no S3 noticed. PMI is normal. Respiratory: Equal breath sounds bilaterally, no tachypnea; lungs clear to auscultation bilaterally, no wheezing ,rub or rales, or crackles. Chest wall is symmetric and without deformity. No signs of trauma. Chest wall is nontender. No signs of respiratory distress. Resonance is normal upon percussion bilaterally. Gastrointestinal: Abdomen symmetric, non-distended, soft, non-tender, normal bowel sounds x4 quadrant, normoactive, no hepatosplenomegaly , no masses , no bruit, no flank pain bilaterally. No voluntary guarding, rebound, or rigidity. No tenderness to percussion. No pulsatile masses. Equal femoral pulses. No Menard's sign or McBurney point tenderness. Back; no CVA tenderness bilaterally, no deformities. Neck and back are without deformity as well. No tenderness noted on palpation of the spinous processes. Spinous processes are midline. Cervical, thoracic, and lumbar paraspinal muscles are not tender and are without spasm. Musculoskeletal: Extremities, normal range of motion, non-tender, muscle strength 5/5 x 4. Negative Homans signs bilaterally on lower extremity. Distal pulses full symmetrical, no clubbing, cyanosis , bilateral lower extremity plus two edema dressing clean dry intact Neurological: Speech is clear, alert, and oriented x 4. No motor or sensory deficit, deep tendon reflexes normal, cerebellar intact. Cranial nerves II-XII intact. Psych: Alert and or appropriate, normal affect. Vascular: Good distal pulses, which are equal x4; capillary refill less than 2 seconds. Lymphatic, no lymphadenopathy. Result Diagram: 02/05/2544702/05/25447 Problem\Assessment\Plan Plan Acute on chronic Heart failure with preserved ejection fraction 50-55%, decompensated Acute hypoxemic respiratory failure Chest x-ray reported cardiomegaly with mild pulmonary vascular congestion ProBNP elevated at 3000, patient has been experiencing shortness of breath, bilateral lower extremity swelling Patient's recent echo was done on 01/14/2025 Initiated the patient on furosemide 20 mg IV b.i.d. Continue patient's GDMT drugs once med rec is done Chronic obstructive pulmonary disease, not in exacerbation Active tobacco smoker Patient is currently saturating at 91%, requiring minimal oxygen of 1-2 L Chest x-ray reported cardiomegaly with mild pulmonary vascular congestion Plan Initiated the patient on breathing treatments albuterol q.2h p.r.n., DuoNebs q.4h scheduled Titrate oxygen as required maintain SpO2 90-94% Initiated the patient on antibiotic ceftriaxone Cellulitis left lower extremity Patient was recently treated for bilateral lower extremity cellulitis Vascular ultrasound on 01/14/2025 was normal Continue antibiotics ceftriaxone Paroxysmal AFib Patient was diagnosed with AFib with RVR in the previous admission, Currently EKG and telemetry reading did not show AFib Continue home medications Xarelto once med rec is done Continue telemetry monitoring History of CAD s/p PCI Hypertension Continue patient's home medication once med rec is done Diabetes mellitus type 2 Patient's HbA1c 6.5 Continue patient's home medications Jardiance once med rec is done Intertrigo Lesly Initiated the patient on clotrimazole 1% cream b.i.d. Hyperlipidemia Patient is on atorvastatin, continue after med reconciliation Obstructive sleep apnea Patient will benefit from outpatient sleep study BiPAP/CPAP if required Morbid obesity BMI is 50.6 kg/meter squared Advised weight loss Tobacco use disorder Discussed smoking cessation with the patient including the risk continued smoking with the patient including: lung cancer, stroke, heart attack, poor wound healing, increase in facial drinking, risk of MRSA skin infections. Patient denied nicotine patch Code Status: Full code DVT Prophylaxis: Xarelto once med rec is done Lines/Tubes: PIV PT:yes Sepsis Screening Reassessment Date: Feb 05, 2025 Date of Service: Feb 05, 2025 Billing Provider: YOBANI MONK MD Common Visit Codes: 59266-LEIUTIYCER INP/OBS CARE(HIGH) YOBANI MONK MD Feb 05, 2025 17:47
[2025-02-06] VITALS (7 sets, daily range): BP systolic 118–158; BP diastolic 71–77; PULSE 64–78; RESP 16–18; TEMP 97.7–98.6; O2SAT 89–95
[2025-02-06 05:45] LABS: MEAN PLATELET VOLUME 9.9 FL (7.4-10.4); RED CELL DISTRIBUTION WIDTH 14.9 % (11.5-14.5)
[2025-02-06 06:08] LABS: CREATININE 0.86 MG/DL (0.40-0.90); TOTAL CARBON DIOXIDE 35.8 MMOL/L (24-32); eCRCL 54 ML/MIN; eGFR 67 ML/MIN
[2025-02-06] MEDS ORDERED: CLOT30CR19 TOP (11:03)
--- NOTE | 2025-02-06 17:38 | DISCHARGE SUMMARY ---
Discharge Summary Providers to CC Feels better today asking to be discharged home ~ Discharge Summary Assessment Cellulitis left lower extremity Congestive heart failure , preserved ejection fraction, in exacerbation, Acute respiratory failure secondary to hypoxia COPD Diabetes mellitus type 2 Borderline diabetes mellitus Bilateral lower leg cellulitis Atrial fibrillation Coronary artery disease status post PCI Obesity Hyperlipidemia Chronic back pain Admission Diagnosis: COPD exaberation,cellulitis,chf Admission Diagnosis Comment: Cellulitis left lower extremity Congestive heart failure , preserved ejection fraction, in exacerbation, Acute respiratory failure secondary to hypoxia COPD Diabetes mellitus type 2 Borderline diabetes mellitus Bilateral lower leg cellulitis Atrial fibrillation Coronary artery disease status post PCI Obesity Hyperlipidemia Chronic back pain Hospital Course DATE OF ADMISSION: February 04, 2025 DATE OF DISCHARGE: February 06, 2025 Discharge Diagnosis\Comment: Cellulitis left lower extremity Congestive heart failure , preserved ejection fraction, in exacerbation, Acute respiratory failure secondary to hypoxia COPD Diabetes mellitus type 2 Borderline diabetes mellitus Bilateral lower leg cellulitis Atrial fibrillation Coronary artery disease status post PCI Obesity Hyperlipidemia Chronic back pain Operations\Procedures: Non Consultants: Non Complications: Non Condition on DC: Stable Discharge Summary: 59-year-old female came to the ED with complaints of shortness of breath for the last two days, patient stated that she could not walk even few steps and was feeling short of breath. She is a readmit from one month ago, during her last admission patient was treated for her cellulitis. She also stated that she has noted increase in warmth and redness in left lower extremity and lower abdomen. Patient denied any chest pain, palpitations, fever.Patient lives by herself in her van, Patient's primary care doctor is from [facility], Patient's cotton washer Dr. Multani, recently visited her cotton washer one week ago. After admission patient was extensively evaluated treated, diuresed, today she is feeling fine asking to be discharged home, she will be discharged in stable condition, medication reconciled follow-up PCP Cardiology in two days, today on physical exam Vital signs, stable ,afebrile. Pulse Oximetry reflects adequate oxygenation. General: well developed, well nourished. Awake , alert, and oriented x4, resting comfortably in the bed, in no acute distress . Skin: Warm, dry, no pallor, no rash or petechiae. HEENT: Atraumatic, normocephalic, EOMI, anicteric sclera B; pink conjunctiva; PERRLA, normal oropharynx, moist oral and nasal mucosa. Tympanic membrane , nose , throat clear. Neck: Trachea midline. Supple, full range of motion, no JVD, bruit , hepatojugular reflex , lymphadenopathy or masses, or other lesions Cardiac: Regular rhythm, regular rate no murmurs, rubs, or gallops. Normal S1 and S2, no S3 noticed. PMI is normal. Respiratory: Equal breath sounds bilaterally, no tachypnea; lungs clear to auscultation bilaterally, no wheezing ,rub or rales, or crackles. Chest wall is symmetric and without deformity. No signs of trauma. Chest wall is nontender. No signs of respiratory distress. Resonance is normal upon percussion bilaterally. Gastrointestinal: Abdomen symmetric, non-distended, soft, non-tender, normal bowel sounds x4 quadrant, normoactive, no hepatosplenomegaly , no masses , no bruit, no flank pain bilaterally. No voluntary guarding, rebound, or rigidity. No tenderness to percussion. No pulsatile masses. Equal femoral pulses. No Menard's sign or McBurney point tenderness. Back; no CVA tenderness bilaterally, no deformities. Neck and back are without deformity as well. No tenderness noted on palpation of the spinous processes. Spinous processes are midline. Cervical, thoracic, and lumbar paraspinal muscles are not tender and are without spasm. Musculoskeletal: Extremities, normal range of motion, non-tender, muscle strength 5/5 x 4. Negative Homans signs bilaterally on lower extremity. Distal pulses full symmetrical, no clubbing, cyanosis , edema. Neurological: Speech is clear, alert, and oriented x 4. No motor or sensory deficit, deep tendon reflexes normal, cerebellar intact. Cranial nerves II-XII intact. Psych: Alert and or appropriate, normal affect. Vascular: Good distal pulses, which are equal x4; capillary refill less than 2 seconds. Lymphatic, no lymphadenopathy. *Problems/Diagnosis: (1) Atrial fibrillation with RVR Status: Acute (2) Respiratory Failure, Acute on Chronic Status: Acute (3) Cellulitis, leg Status: Acute Total Time Spent on D/C: > 30 Minutes Date of Service: Feb 06, 2025 Billing Provider: YOBANI MONK MD Common Visit Codes: 45715-WJI/OBS DISCH DAY >30min YOBANI MONK MD Feb 06, 2025 17:38
== END 2025-02-06 12:30 | disposition home or self-care (01) | DRG 602 ==
LOC: ER 01:26 → ED HOLD 05:56 → ORTHO 4S 17:42
PROVIDERS: ADMIT Internal Medicine; ATTEND Family Medicine
DX: L03.116 Cellulitis of left lower limb (principal); I50.33 Acute on chronic diastolic (congestive) heart failure; J96.01 Acute respiratory failure with hypoxia; Z68.43 Body mass index [BMI] 50.0-59.9, adult; L03.115 Cellulitis of right lower limb; I11.0 Hypertensive heart disease with heart failure; E11.9 Type 2 diabetes mellitus without complications; I48.91 Unspecified atrial fibrillation; I25.10 Atherosclerotic heart disease of native coronary artery without angina pectoris; J44.9 Chronic obstructive pulmonary disease, unspecified; E78.00 Pure hypercholesterolemia, unspecified; G89.29 Other chronic pain; E66.9 Obesity, unspecified; Z79.01 Long term (current) use of anticoagulants; Z91.09 Other allergy status, other than to drugs and biological substances; Z79.82 Long term (current) use of aspirin; Z79.899 Other long term (current) drug therapy
CPT/HCPCS: 36415; 71045; 80048; 80053; 80305; 81003; 83605; 83735; 83880; 84100; 84145; 84484; 85025; 87081; 93005; 94640; 94760; 96374; 99285; A4615; A6250; G0378; J0696; J1938